=== PATIENT | male | born 1990 | race Caucasian/White ===

== ENCOUNTER 2020-10-26 21:26 | Emergency (ER) | payer SELFPAY ==
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
[2020-10-26] MEDS ORDERED: ONDANSETRON 4 MG/2 ML VIAL ONE (22:14)
[2020-10-26] MEDS ORDERED: MORPHINE 4 MG/ML SYR ONE (22:14)
[2020-10-26] MEDS ORDERED: TETANUS & DIPHTHERIA TOX,ADULT 0.5 ML VIAL ONE (22:15)
[2020-10-26] MEDS ORDERED: NA CHLORIDE 0.9% 3,000 ML ONE (22:15)
[2020-10-26 22:30] LABS: Absolute Lymphocytes (CBC) 1.7 K/uL (0.7-4.9); Basophils % 0.5 % (0-1.3); Hematocrit 39.9 % (39.6-49.0); Lymphocytes % 11.6 % (15.3-44.8); MPV 9.3 fL (7.6-11.3); RBC Red Blood Cell Count 4.67 M/uL (4.33-5.43)
[2020-10-26 22:41] LABS: Albumin 3.3 g/dL (3.4-5.0); Bilirubin Total 0.3 mg/dL (0.2-1.0); Potassium 3.7 mmol/L (3.5-5.1); Protein, Total 7.2 g/dL (6.4-8.2)
[2020-10-27 00:30] VITALS: BP 159/89; TEMP 98.6; O2SAT 100
--- NOTE | 2020-10-27 10:29 | RAD REPORT ---
EXAM DESCRIPTION: [place] Single View10/26/2020 10:15 pm CLINICAL HISTORY: Chest pain COMPARISON: none FINDINGS: The lungs appear clear of acute infiltrate. The heart is normal size IMPRESSION: No acute abnormalities displayed
== END 2020-10-27 00:24 | disposition short-term general hospital (02) ==
LOC: ER 21:26
DX: T21.23XA Burn of second degree of upper back, initial encounter (principal); T21.24XA Burn of second degree of lower back, initial encounter; T31.0 Burns involving less than 10% of body surface; X08.8XXA Exposure to other specified smoke, fire and flames, initial encounter; Z23 Encounter for immunization
CPT/HCPCS: 36415; 71045; 80053; 85025; 90471; 90714; 96361; 96374; 96375; 99284; G0390; J2405; J7030